=== PATIENT | male | born 1955 | race Two or more races ===

== ENCOUNTER → 2024-01-15 | Day surgery (SDC) | payer MEDICARE, MEDICAID ==
[~2024-01-15] VITALS: Ht 162.6 cm; Wt 57.2 kg
[~2024-01-15] MED LIST: ACETYLCHOLINE CHLORIDE INTRAOCULAR SOLUTION 1:100 ELECTROLYTE DILUENT IO ONE; ALBU18HF2 IH; AMLO10TA80 PO; BALANCED SALT IRRIG SOLN COMB1 500ML OP SCH; CYCLOPENTOLATE HCL 1% OPHTH DROPS 2ML LEFTEYE SCH; FENTANYL CITRATE/PF 50MCG/ML 2ML VIAL ONE; HYALURONATE SODIUM 10 MG/ML 0.55ML SYRINGE IO ONE; HYDR25TA PO; LACTATED RINGERS 1,000 ML IV SCH; ONDANSETRON HCL 4MG/2ML INJ IV PRN; PHENYLEPHRINE HCL 10% OPHTH DROPS 5ML LEFTEYE SCH; PROPOFOL 200MG/20ML VIAL IV ONE; TROPICAMIDE 1% OPHTH DROPS 15ML LEFTEYE SCH
[2024-01-15 12:50] LABS: POTASSIUM 3.3 mEq/L (3.5-5.1)
[2024-01-15] MEDS: LACTATED RINGERS 1,000 ML IV SCH (13:35)
== END | disposition home or self-care (01) ==
LOC: OR 12:02
PROVIDERS: ATTEND Ophthalmology
DX: H25.89 Other age-related cataract (principal); I10 Essential (primary) hypertension; J45.909 Unspecified asthma, uncomplicated; Z79.899 Other long term (current) drug therapy; Z98.890 Other specified postprocedural states; Z88.1 Allergy status to other antibiotic agents
CPT/HCPCS: 84132; 36415; 66984; J3010; J3490 ×3; J2704; A4217; Z7610 ×20; V2632